=== PATIENT | female | born 1930 | race Caucasian/White ===

== ENCOUNTER 2017-07-06 12:17 | Outpatient (CLI) | payer MEDICARE ==
--- NOTE | 2017-07-06 18:31 | ULT ---
RENAL ULTRASOUND: History: Follow up cyst. Correlation to MRI lumbar spine, 10-23-16 which described a retroperitoneal cyst on the right anterior to the right kidney. FINDINGS: The right kidney measures 8.7 cm in length. Small cyst superior right kidney measures 1.6 cm. Left kidney measures 9.5 cm. There is no hydronephrosis. No other renal lesions seen. The questioned cystic lesion in the right retroperitoneum on the MRI of 10-23-16 is not identified by ultrasound. This could potentially represent a duodenal diverticulum or dilation of the duodenum. Thi s would need to be evaluated with CT. POS: [facility]
== END 2017-07-06 12:18 | disposition home or self-care (01) ==
LOC: SCSULT 12:17
PROVIDERS: ATTEND Internal Medicine Nephrology
DX: N18.3 Chronic kidney disease, stage 3 (moderate) (principal); N28.1 Cyst of kidney, acquired
CPT/HCPCS: 76770

== ENCOUNTER 2017-11-16 16:49 | Emergency (ER) | payer MEDICARE, OTHER ==
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
== END 2017-11-16 18:28 | disposition home or self-care (01) ==
LOC: SCSER 16:49
DX: S16.1XXA Strain of muscle, fascia and tendon at neck level, initial encounter (principal); S60.222A Contusion of left hand, initial encounter; I48.91 Unspecified atrial fibrillation; E03.9 Hypothyroidism, unspecified; E78.5 Hyperlipidemia, unspecified; Z79.899 Other long term (current) drug therapy; V89.2XXA Person injured in unspecified motor-vehicle accident, traffic, initial encounter

== ENCOUNTER 2017-12-17 11:17 | Outpatient (CLI) | payer MEDICARE, OTHER ==
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
--- NOTE | 2017-12-17 13:00 | RAD ---
LEFT ANKLE THREE VIEWS: HISTORY: Left ankle pain. COMPARISON: 08/12/2015 FINDINGS: The ankle mortise is intact. Soft tissue swelling is greater than on the previous study. Subtle cor tical remodeling of the distal fibula at the level of the ankle mortise is unchanged and may be relat ed to an old injury. The osseous structures are demineralized. No acute fracture or dislocation. IMPRESSION: 1. Increased soft tissue swelling. Possible old left fibula fracture. No acute osseous abnormaliti es are demonstrated. 2. Osteoporosis. POS: [facility]
== END 2017-12-17 11:18 | disposition home or self-care (01) ==
LOC: SCSRAD 11:17
PROVIDERS: ATTEND Family Medicine
DX: M25.472 Effusion, left ankle (principal); M19.072 Primary osteoarthritis, left ankle and foot; M81.0 Age-related osteoporosis without current pathological fracture

== ENCOUNTER 2017-12-25 07:05 | Outpatient (CLI) | payer MEDICARE ==
--- NOTE | 2017-12-25 08:20 | ULT ---
BILATERAL LOWER EXTREMITY VENOUS DOPPLER ULTRASOUND: HISTORY: Bilateral lower extremity edema. TECHNIQUE: Dodge scale, color flow and spectral Doppler imaging of the deep venous systems of the lower extremiti es performed bilaterally. FINDINGS: There is good flow, compression, and augmentation noted in the common femoral, femoral, deep femoral , popliteal, posterior tibial, and greater saphenous veins on either side. IMPRESSION: No evidence of deep vein thrombosis in either lower extremity. POS: [facility]
== END 2017-12-25 07:06 | disposition home or self-care (01) ==
LOC: SCSULT 07:05
PROVIDERS: ATTEND Family Medicine
DX: R60.0 Localized edema (principal); R23.3 Spontaneous ecchymoses
CPT/HCPCS: 93970

== ENCOUNTER 2018-03-23 09:58 | Day surgery (SDC) | payer MEDICARE ==
[2018-03-22 12:28] VITALS: BMI 24.3
[2018-03-23] MEDS ORDERED: Fentanyl 100 MCG/2 ML VIAL ONE ×4 (11:15→14:21)
[2018-03-23] MEDS ORDERED: Midazolam HCl 2 mg/2 ml Vial ONE ×2 (11:16→12:00)
[2018-03-23 11:28] LABS: Hemoglobin 12.1 g/dL (12.0-16.0); Mean Corpuscular HGB CONC 33.3 g/dL (32.0-36.0); Mean Corpuscular Hemoglobin 31.2 pg (27.0-31.0); Mean Corpuscular Volume 93.6 fL (78.0-98.0); Mean Platelet Volume 7.2 fL (7.4-10.4); Platelet Count 247 thou/uL (130-400); RBC Distribution Width 14.5 % (11.5-14.5); Red Blood Cell (RBC) Count 3.87 mill/uL (4.20-5.40); White Blood Cell (WBC) Count 8.8 thou/uL (4.8-10.8)
[2018-03-23] MEDS ORDERED: Clindamycin/D5W 900 mg/50 ml Premix Bag ONE (11:32)
[2018-03-23] MEDS ORDERED: Neomycin-Polymyxin 1 ML AMP ONE (11:50)
[2018-03-23] MEDS ORDERED: Bupivacaine PF 0.5% 30 ML VIAL ONE (11:50)
[2018-03-23 11:53] LABS: Anion Gap 15 mmol/L (10-20); BUN (Urea Nitrogen) 23 mg/dL (9.8-20.1); Calc. Creatinine Clearance 28 mL/min (70-130); Calcium 9.9 mg/dL (7.8-10.44); Carbon Dioxide 24 mmol/L (23-31); Chloride 100 mmol/L (98-107); Estimated GFR-MDRD 33; Glucose 108 mg/dL (83-110); Sodium 134 mmol/L (136-145)
[2018-03-23] MEDS ORDERED: Bupivacaine HCl 0.5%/Epinephrine 1:200,000/PF 30 ml Vial ONE (12:47)
--- NOTE | 2018-03-23 14:32 | OP ---
DATE OF OPERATION: 03/23/2018 PREOPERATIVE DIAGNOSIS: Displaced olecranon fracture of the left elbow. The patient had a previous open reduction and internal fixation of the olecranon and has had re-displacement. POSTOPERATIVE DIAGNOSIS: Displaced olecranon fracture of the left elbow. The patient had a previous open reduction and internal fixation of the olecranon and has had re-displacement. PROCEDURE: Removal of retained wire of the left elbow and open reduction and internal fixation of th e olecranon. SURGEON: Kofi Casarez M.D. ANESTHESIA: General. TECHNIQUE: The patient was given preoperative IV antibiotics, taken to the operating room, placed in the supine position. Satisfactory general anesthesia was performed. The left upper extremity was s terilely prepped and draped in usual fashion. After exsanguination, tourniquet at the proximal left arm was raised to 250 mmHg. An incision was made over the previous scar in the posterior aspect of t he elbow, approximately 3 inches in length. The olecranon fracture was easily identified. The 2 K-w ires, that were used previously, had already been removed and the 18-gauge wire, that was also placed , was easily found and removed. There was comminution of the olecranon at the fracture site and the bone fragments were removed and placed on the back table. The elbow joint was irrigated with antibio tic solution. The fracture was then reduced and initially held reduced with 2 guide pins. After hamlet ifying good placement of the guide pins and proper position of the fracture, 2 of the 4.5 cannulated screws were inserted. This provided some stability to the fracture. Holes were also made in the pos terior aspect of the proximal shaft and a #2 FiberWire was used in simple and also [id number] fa shion through the bone in the proximal shaft and also through the olecranon main fragment and this pr ovided much better stability for the internal fixation. Again, this was all performed under fluorosc opic visualization. After these were placed, the elbow was reviewed with the fluoroscopy with the C- arm and the olecranon fracture had good stability and rode well in the distal humerus. The guide pin s had been removed. The wound was irrigated with antibiotic solution and closed using 0 Vicryl for t he fat and subcutaneous tissue, and skin was closed with 3-0 Rapide. A 10 mL of 0.5% Marcaine with e pinephrine was used for postoperative analgesia. Sterile dressing was applied. The patient was plac ed in a posterior OrthoGlass splint with the elbow at 90 degrees. The tourniquet was released. The patient was awakened, extubated, and transferred to the recovery room in stable condition. ESTIMATED BLOOD LOSS: None. COMPLICATIONS: None. TOURNIQUET TIME: 48 minutes.
[2018-03-23] MEDS ORDERED: PHENYLEPHRINE-NS 100 MCG/ML 10 ML SYRINGE ONE (14:44)
[2018-03-23] MEDS ORDERED: Lidocaine 1% PF 5 ML VIAL ONE (14:44)
[2018-03-23] MEDS ORDERED: Esmolol 100 MG/10 ML VIAL ONE (14:44)
[2018-03-23] MEDS ORDERED: Ondansetron HCl/PF 4 MG/2 ML Vial ONE (14:44)
[2018-03-23] MEDS ORDERED: PROPOFOL 200 MG/20 ML VIAL ONE (14:44)
[2018-03-23] MEDS ORDERED: Glycopyrrolate 0.2 MG/ML 5 ML SYRINGE ONE (14:44)
[2018-03-23] MEDS ORDERED: Dexamethasone 20 MG/5 ML VIAL ONE (14:44)
[2018-03-23] MEDS ORDERED: HYDROcodone/Acetaminophen 5/325 mg Tablet ONE (15:09)
[2018-03-23] MEDS ORDERED: Morphine 4 MG/ML VIAL ONE (15:54)
--- NOTE | 2018-03-24 12:04 | EKG ---
Test Reason : PREOP Blood Pressure : / mmHG Vent. Rate : 091 BPM Atrial Rate : 105 BPM P-R Int : 000 ms QRS Dur : 084 ms QT Int : 382 ms P-R-T Axes : 000 023 -07 degrees QTc Int : 469 ms Atrial fibrillation with premature ventricular or aberrantly conducted complexes Abnormal ECG No previous ECGs available Confirmed by KONRAD IRIZARRY ([id number]) on 03/24/2018 12:04:12 PM Referred By: JARON Confirmed By:KONRAD IRIZARRY
--- NOTE | 2018-03-24 17:09 | RAD ---
INTRAOPERATIVE FLUOROSCOPY 03/24/18 HISTORY: Ulnar fracture. COMPARISON: None. EXPOSURE: 18.4 seconds. 0.24 mGy. FINDINGS: Intraoperative fluoroscopy was provided for Dr. Casarez. Two fluoroscopic images demonstrate two scre ws traversing the proximal ulna. There is evidence of a fracture in the proximal ulna. IMPRESSION: Fluoroscopy as above. POS: [facility]
== END 2018-03-23 16:45 | disposition home or self-care (01) ==
LOC: SDC 09:58
PROVIDERS: ATTEND Orthopaedic Surgery
PROC: 0PSL04Z Reposition Left Ulna with Internal Fixation Device, Open Approach (ICD-10-PCS; principal; 2018-03-23)
PROC: 0RPM04Z Removal of Internal Fixation Device from Left Elbow Joint, Open Approach (ICD-10-PCS; 2018-03-23)
DX: S52.022A Displaced fracture of olecranon process without intraarticular extension of left ulna, initial encounter for closed fracture (principal); T84.228A Displacement of internal fixation device of other bones, initial encounter; M19.90 Unspecified osteoarthritis, unspecified site; I48.91 Unspecified atrial fibrillation; D86.9 Sarcoidosis, unspecified; Z79.01 Long term (current) use of anticoagulants; Z79.899 Other long term (current) drug therapy; Z88.0 Allergy status to penicillin; Z88.5 Allergy status to narcotic agent; Z88.7 Allergy status to serum and vaccine; Z98.890 Other specified postprocedural states
CPT/HCPCS: 20680; 24685; 73070; 76001; 80048; 85027; 93005; 96374 ×2; C1713 ×2; C1769; 93010; J0670; J1100; J2001; J2250; J2270; J2405; J2704; J3010; J3490; S0020

== ENCOUNTER 2018-07-12 12:36 | Outpatient (CLI) | payer MEDICARE ==
[2018-07-12 13:35] LABS: Mean Corpuscular HGB CONC 33.8 g/dL (32.0-36.0); Mean Corpuscular Hemoglobin 31.2 pg (27.0-31.0); Mean Corpuscular Volume 92.2 fL (78.0-98.0); Mean Platelet Volume 8.9 fL (7.4-10.4); Platelet Count 169 thou/uL (130-400); RBC Distribution Width 12.3 % (11.5-14.5); Red Blood Cell (RBC) Count 4.48 mill/uL (4.20-5.40); White Blood Cell (WBC) Count 6.4 thou/uL (4.8-10.8)
[2018-07-12 13:52] LABS: Anion Gap 13 mmol/L (10-20); BUN (Urea Nitrogen) 17 mg/dL (9.8-20.1); Calc. Creatinine Clearance 0 mL/min (70-130); Carbon Dioxide 28 mmol/L (23-31); Chloride 103 mmol/L (98-107); Estimated GFR-MDRD 54; Glucose 97 mg/dL (83-110); Potassium 4.1 mmol/L (3.5-5.1); Sodium 140 mmol/L (136-145)
--- NOTE | 2018-07-14 21:46 | EKG ---
Test Reason : Blood Pressure : / mmHG Vent. Rate : 077 BPM Atrial Rate : 058 BPM P-R Int : 000 ms QRS Dur : 086 ms QT Int : 408 ms P-R-T Axes : 000 004 039 degrees QTc Int : 461 ms Atrial fibrillation with premature ventricular or aberrantly conducted complexes Low voltage QRS Abnormal ECG When compared with ECG of 23-MAR-2018 11:19, T wave inversion no longer evident in Inferior leads T wave amplitude has decreased in Anterior leads Confirmed by Elias JC ([id number]) on 07/14/2018 9:45:57 PM Referred By: LOCO Confirmed By:Elias JC
== END 2018-07-12 12:37 | disposition home or self-care (01) ==
LOC: LABBT 12:36
PROVIDERS: ATTEND Surgery
DX: Z01.818 Encounter for other preprocedural examination (principal); K64.9 Unspecified hemorrhoids
CPT/HCPCS: 80048; 85027; 93005; 93010

== ENCOUNTER 2018-07-16 08:11 | Day surgery (SDC) | payer MEDICARE ==
[2018-07-12 12:41] VITALS: BMI 24.7
[2018-07-16] MEDS ORDERED: Ketorolac Tromethamine 30 MG/ML VIAL IVP SCH (08:45)
[2018-07-16] MEDS ORDERED: Acetaminophen 1,000 MG in Premix Bag 1 BAG IVPB SCH (08:45)
[2018-07-16] MEDS ORDERED: Ketorolac Tromethamine 30 MG/ML VIAL ONE (08:56)
[2018-07-16] MEDS ORDERED: metroNIDAZOLE 500 MG/100 ML BAG ONE (10:01)
[2018-07-16] MEDS ORDERED: Levofloxacin 500 mg/D5W 100 ml Premix Bag ONE (10:01)
[2018-07-16] MEDS ORDERED: Lidocaine 2% PF 5 ML VIAL ONE (10:08)
[2018-07-16] MEDS ORDERED: Bupivacaine/Epinephrine 0.25% 30 ML VIAL ONE (10:08)
[2018-07-16] MEDS ORDERED: Fentanyl 100 MCG/2 ML VIAL ONE (10:09)
[2018-07-16] MEDS ORDERED: Lidocaine 2% Jelly 5 ML TUBE ONE ×2 (11:34→11:49)
[2018-07-16] MEDS ORDERED: Glycopyrrolate 0.2 MG/ML 5 ML SYRINGE ONE (13:01)
[2018-07-16] MEDS ORDERED: PHENYLEPHRINE-NS 100 MCG/ML 10 ML SYRINGE ONE (13:01)
[2018-07-16] MEDS ORDERED: Ondansetron PF 4 MG/2 ML Vial ONE (13:01)
[2018-07-16] MEDS ORDERED: PROPOFOL 200 MG/20 ML VIAL ONE (13:01)
[2018-07-16] MEDS ORDERED: Lidocaine 1% PF 5 ML VIAL ONE (13:01)
--- NOTE | 2018-07-21 08:53 | OP ---
DATE OF PROCEDURE: 07/16/2018 PROCEDURE PERFORMED: Stapled hemorrhoidopexy. PREOPERATIVE DIAGNOSIS: Prolapsing internal hemorrhoid. POSTOPERATIVE DIAGNOSIS: Prolapsing internal hemorrhoids. HISTORY: Ms. Vasquez is an 87-year-old woman with longstanding internal hemorrhoids, which have become much more symptomatic recently. They are prolapsing and need to be manually reduced and she has also had bleeding. Recommendation was made to proceed with stapled hemorrhoidopexy since she has a minimal external component. DESCRIPTION OF PROCEDURE: After informed consent was obtained and appropriate preoperative antibiotics were administered, the patient was taken to the operating room where she was placed in the supine position and general endotracheal anesthesia was administered. She was then moved to the prone alyse-knife position with appropriate support and padding of her extremities, and prepped and draped in standard sterile fashion. The anus was dilated and the external portion of the anoscope was placed into the anal canal. The tissues were milked out and the anoscope secured to the skin circumferentially with 4 sutures. The external portion of the anal canal was completely behind the anoscope. The internal portion was then placed and a circumferential purse-string suture created removing the anoscope between each bite and rotating and replacing the scope to avoid twisting the tissues. All of these bites were well above the dentate line and included the mucosa and submucosa. Pursestring suture was tightened around the finger and no gaps in the suture line were felt. The vagina was examined and there was no tethering of the vaginal wall and no visible suture. The PPH stapler was then obtained and the purse-string suture brought out through the 2 side tunnels using the hook device after a single throw was created. The anvil was advanced above the suture line and the purse-string suture tightened around the stem of the anvil. This was kept taut against the anvil as the stapler was advanced into the anal canal, tightened and then fired. The stapler was then removed and a full-thickness doughnut was confirmed to be present. This was cut off the stapler and sent as a specimen. The suture line was examined and a couple of small bleeding areas were controlled with Vicryl sutures. Local anesthesia was infused circumferentially for postoperative pain management and the external portion of the anoscope was removed by cutting the stay sutures. A Gelfoam and lidocaine jelly plug was placed into the anal canal. The patient was moved to the supine position, extubated, and taken to recovery in good condition. ESTIMATED BLOOD LOSS: Minimal. COMPLICATIONS: There were no complications. SPECIMENS: Hemorrhoids. Job ID: [id number]
== END 2018-07-16 13:45 | disposition home or self-care (01) ==
LOC: SDC 08:11
PROVIDERS: ATTEND Surgery
PROC: 06BY3ZC Excision of Hemorrhoidal Plexus, Percutaneous Approach (ICD-10-PCS; principal; 2018-07-16)
DX: K64.8 Other hemorrhoids (principal); K64.4 Residual hemorrhoidal skin tags; M81.0 Age-related osteoporosis without current pathological fracture; I10 Essential (primary) hypertension; I48.91 Unspecified atrial fibrillation; Z88.0 Allergy status to penicillin; Z88.8 Allergy status to other drugs, medicaments and biological substances; Z88.1 Allergy status to other antibiotic agents; Z88.7 Allergy status to serum and vaccine; Z79.01 Long term (current) use of anticoagulants; Z79.83 Long term (current) use of bisphosphonates; Z79.899 Other long term (current) drug therapy
CPT/HCPCS: 88304; J0131; J1885; J1956; J2001; J2405; J2704; J3010

== ENCOUNTER 2018-10-06 13:06 | Outpatient (CLI) | payer MEDICARE ==
--- NOTE | 2018-10-06 13:40 | RAD ---
TWO VIEWS CHEST: DATE: 10/06/2018. PROVIDED CLINICAL HISTORY: Cough and fever. FINDINGS: No comparisons. Heart size is within normal limits. Vascular calcification involves the aortic arch . No definite focal consolidation, pleural fluid, or pneumothorax apparent. IMPRESSION: No evidence for an acute cardiopulmonary process. POS: [facility]
== END 2018-10-06 13:07 | disposition home or self-care (01) ==
LOC: SCSRAD 13:06
PROVIDERS: ATTEND Physician Assistant Medical
DX: R50.9 Fever, unspecified (principal)
CPT/HCPCS: 71046

== ENCOUNTER 2018-10-07 16:04 | Emergency (ER) | payer MEDICARE ==
[2018-10-07 17:26] LABS: #Basophils 0.1 thou/uL (0.0-0.2); #Lymphocytes 0.6 thou/uL (1.20-3.40); #Monocytes 0.7 thou/uL (0.11-0.59); #Neutrophils 3.8 thou/uL (1.40-6.50); %Basophils 1.3 % (0.0-1.0); %Lymphocytes 11.8 % (21.0-51.0); %Monocytes 12.6 % (0.0-10.0); %Neutrophils 74.3 % (42.0-75.0); Hemoglobin 12.9 g/dL (12.0-16.0); Mean Corpuscular HGB CONC 34.1 g/dL (32.0-36.0); Mean Corpuscular Hemoglobin 30.3 pg (27.0-31.0); Mean Corpuscular Volume 88.7 fL (78.0-98.0); Mean Platelet Volume 10.2 fL (7.4-10.4); Platelet Count 86 thou/uL (130-400); Platelet Morphology Comment Appears Decreased; RBC Distribution Width 11.8 % (11.5-14.5); Red Blood Cell (RBC) Count 4.25 mill/uL (4.20-5.40); White Blood Cell (WBC) Count 5.1 thou/uL (4.8-10.8)
[2018-10-07 17:30] LABS: ALT (SGPT) 38 U/L (8-55); AST (SGOT) 69 U/L (5-34); Albumin 4.2 g/dL (3.4-4.8); Alkaline Phosphatase 137 U/L (40-150); Anion Gap 16 mmol/L (10-20); BUN (Urea Nitrogen) 12 mg/dL (9.8-20.1); Bilirubin, Total 0.5 mg/dL (0.2-1.2); Calc. Creatinine Clearance 0 mL/min (70-130); Calcium 9.3 mg/dL (7.8-10.44); Carbon Dioxide 25 mmol/L (23-31); Chloride 92 mmol/L (98-107); Estimated GFR-MDRD 48; Globulin 2.6 g/dL (2.4-3.5); Glucose 111 mg/dL (83-110); Potassium 3.2 mmol/L (3.5-5.1); Protein, Total 6.8 g/dL (6.0-8.3); Sodium 130 mmol/L (136-145)
[2018-10-07] MEDS ORDERED: Acetaminophen 500 MG TAB ONE (17:51)
== END 2018-10-07 18:16 | disposition home or self-care (01) ==
LOC: SCSER 16:04
DX: J10.1 Influenza due to other identified influenza virus with other respiratory manifestations (principal); E78.5 Hyperlipidemia, unspecified; I48.91 Unspecified atrial fibrillation; M81.0 Age-related osteoporosis without current pathological fracture; Z79.01 Long term (current) use of anticoagulants; E03.9 Hypothyroidism, unspecified
CPT/HCPCS: 80053; 83605; 85025; 87040; 87804; 96360

== ENCOUNTER 2019-01-24 12:02 | Outpatient (CLI) | payer MEDICARE ==
[~2019-01-24 12:02] MED LIST: Iopamidol 370 76% 100 ML VIAL ONE
[2019-01-24 14:28] LABS: ALT (SGPT) 22 U/L (8-55); AST (SGOT) 24 U/L (5-34); Albumin 4.9 g/dL (3.4-4.8); Alkaline Phosphatase 136 U/L (40-150); Anion Gap 16 mmol/L (10-20); BUN (Urea Nitrogen) 13 mg/dL (9.8-20.1); Bilirubin, Total 0.4 mg/dL (0.2-1.2); Calc. Creatinine Clearance 0 mL/min (70-130); Calcium 10.1 mg/dL (7.8-10.44); Carbon Dioxide 26 mmol/L (23-31); Chloride 96 mmol/L (98-107); Estimated GFR-MDRD 51; Globulin 3.4 g/dL (2.4-3.5); Glucose 105 mg/dL (83-110); Potassium 3.1 mmol/L (3.5-5.1); Protein, Total 8.3 g/dL (6.0-8.3); Sodium 135 mmol/L (136-145)
[2019-01-24 15:19] LABS: Hemoglobin 14.1 g/dL (12.0-16.0); Mean Corpuscular HGB CONC 33.7 g/dL (32.0-36.0); Mean Corpuscular Hemoglobin 30.5 pg (27.0-31.0); Mean Corpuscular Volume 90.6 fL (78.0-98.0); Mean Platelet Volume 9.4 fL (7.4-10.4); Platelet Count 170 thou/uL (130-400); RBC Distribution Width 12.7 % (11.5-14.5); Red Blood Cell (RBC) Count 4.62 mill/uL (4.20-5.40)
[2019-01-24 15:20] LABS: Band 1 % (5-11); Eosinophils 1 % (0-10); Lymphocytes 22 % (21-51); MDiff Complete? YES; Monocytes 10 % (0-10); Neutrophil 65 % (42-75); Platelet Morphology Comment Appears Adequate; RBC Morphology Normal
--- NOTE | 2019-01-24 18:38 | CT ---
CT OF ABDOMEN AND PELVIS PERFORMED WITH INTRAVENOUS CONTRAST ENHANCEMENT: 01/24/19 HISTORY: Diarrhea for the past week. History of diverticulitis. COMPARISON: A noncontrast CT of the abdomen dated 11/13/16. The heart size is enlarged. Lung bases show chronic appearing change. The liver and spleen show no focal findings. Liver shows somewhat prominent left lobe. The pancreas a nd gallbladder regions appear unremarkable. Right and left adrenal glands are normal. Small hypodensities involving both kidneys appear to repres ent cysts. There is no significant periaortic or mesenteric lymphadenopathy. There is some mild diver ticular disease of the descending colon and moderate diverticulosis of the sigmoid colon. There is no inflammatory process. No signs of a colitis. The appendix region appears unremarkable. The appendix appears normal in size. No significant pelvic lymphadenopathy or mass. IMPRESSION: 1. Colonic diverticulosis, mainly related to the sigmoid colon. 2. Bilateral renal cysts. 3. Incidental note is made of a benign appearing chondroid lesion in the intertrochanteric regio n of the right hip. 4. Deformity to the left side of the sacrum which appears to be related to an old sacral insuffi ciency fracture. POS: [facility]
== END 2019-01-24 12:03 | disposition home or self-care (01) ==
LOC: SCSCT 12:02
PROVIDERS: ATTEND Family Medicine
DX: A09 Infectious gastroenteritis and colitis, unspecified (principal); R10.84 Generalized abdominal pain; K57.30 Diverticulosis of large intestine without perforation or abscess without bleeding; N28.1 Cyst of kidney, acquired; M43.8X8 Other specified deforming dorsopathies, sacral and sacrococcygeal region
CPT/HCPCS: 36415; 74177; 80053; 82274; 83630; 85007; 85027; 87045; 87046; 87081; 87324; 87449; 87899; Q9967

== ENCOUNTER 2019-04-13 09:19 | Outpatient (CLI) | payer MEDICARE ==
--- NOTE | 2019-04-13 09:46 | RAD ---
EXAM: 3 views of the right wrist HISTORY: Lateral wrist pain for 2 weeks COMPARISON: 08/30/2015 FINDINGS: 3 views of the right wrist shows no evidence of acute fracture or dislocation. No soft tiss ue swelling is seen. No degenerative changes are present. Vascular calcifications are present. IMPRESSION: No evidence of acute osseous abnormality.
[2019-04-13 10:05] LABS: ALT (SGPT) 19 U/L (8-55); AST (SGOT) 22 U/L (5-34); Albumin 4.2 g/dL (3.4-4.8); Alkaline Phosphatase 114 U/L (40-150); Anion Gap 12 mmol/L (10-20); BUN (Urea Nitrogen) 17 mg/dL (9.8-20.1); Bilirubin, Total 0.4 mg/dL (0.2-1.2); Calc. Creatinine Clearance 0 mL/min (70-130); Carbon Dioxide 30 mmol/L (23-31); Chloride 102 mmol/L (98-107); Estimated GFR-MDRD 58; Globulin 2.5 g/dL (2.4-3.5); Glucose 84 mg/dL (83-110); Lipase 48 U/L (8-78); Potassium 3.4 mmol/L (3.5-5.1); Protein, Total 6.7 g/dL (6.0-8.3); Sodium 141 mmol/L (136-145)
[2019-04-13 14:53] LABS: Ref Lab Test Ordered MG RBC; Reference Lab Name LABCORP
== END 2019-04-13 09:20 | disposition home or self-care (01) ==
LOC: SCSRAD 09:19
PROVIDERS: ATTEND Family Medicine
DX: M25.531 Pain in right wrist (principal)
CPT/HCPCS: 36415; 80053; 82150; 83690